=== PATIENT | female | born 1930 | race Caucasian/White ===

== ENCOUNTER 2018-11-27 17:36 | Inpatient (IN) | payer MEDICARE, BC ==
[~2018-11-27] VITALS: Ht 152.4 cm; Wt 65.8 kg
[2018-11-27] MEDS ORDERED: Z GUARD REMEDY PASTE 57 GM TUBE TOP PRN (17:45)
[2018-11-27 17:56] VITALS: BP 145/45
[2018-11-27] MEDS ORDERED: ZOLP5TAB8 PO (18:20)
[2018-11-27] MEDS ORDERED: MAG-55 PO (18:20)
[2018-11-27] MEDS ORDERED: ACET-2154 PO (18:20)
[2018-11-27] MEDS ORDERED: LEVO100T10 PO (18:20)
[2018-11-27] MEDS ORDERED: HYDR-3326 PO (18:20)
[2018-11-27] MEDS ORDERED: AMLO10TA7 PO (18:20)
[2018-11-27] MEDS ORDERED: LISI-603 PO (18:20)
[2018-11-27] MEDS ORDERED: MAGN400O6 PO (18:20)
[2018-11-27] MEDS ORDERED: MULTI INGREDIENT TP (18:20)
[2018-11-27] MEDS ORDERED: ONDA4TAB10 PO (18:20)
--- NOTE | 2018-11-27 19:09 | NUR ---
Admitted a 88 years old female patient at [address] [facility]. BIB 2 EMT via [facility]. Pt. is under the care of Dr. Hidalgo and Julius Mcgill DNP who came with the following dx: TIA, HLD, hypothyroidism, Colon CA, HTN, and GERD. Patient has allergies to Sulfa. Patient is full code. Patient is A/Ox4 verbally responsive and able to make her needs known. No SOB or acute distress, on 2LPM via [place] and tolerating well. Denies pain during assessment. All pt. needs attended and met promptly. Lungs sounds clear to auscultation. Initial skin assessment completed, noted with bilateral heel redness and shell posterior thigh skin redness. MRSA swab completed per unit protocol. Pt. on a Cardiac diet. Dr. Hidalgo made aware of pt. admission. Notified Magdaleno Mcgill DNP of admission and requested med recon. Kept pt. clean and dry. Safety measures in place. Call light and all frequently used items within pt. reach. Emphasize use of call light system, pt. verbalized clear understanding. Will endorse to oncoming shift accordingly.
[2018-11-27 19:48] VITALS: BP 156/57
[2018-11-27] MEDS ORDERED: ZOLPIDEM 5 MG TABLET PO SCH (20:00)
[2018-11-27] MEDS ORDERED: MAGNESIUM HYDROXIDE 30 ML LIQUID UDC PO SCH (20:00)
--- NOTE | 2018-11-27 21:25 | NUR ---
received patient in bed watching TV upon rounds. aaox4 no acute distress noted. VSS. Seen by Dr Mcgill. needs attended. denies any pain nor any discomfort. On O2 @ 2L via nasal cannula, pulse ox 96%. Kept comfortable. Incontinent of bowel and bladder. No BM noted. Kept clean and dry. Will monitor patient.
[2018-11-28 05:49] VITALS: BP 150/55
[2018-11-28] MEDS ORDERED: ZOLPIDEM 5 MG TABLET PO PRN (07:05)
[2018-11-28] MEDS ORDERED: MAGNESIUM HYDROXIDE 30 ML LIQUID UDC PO PRN (07:06)
[2018-11-28] MEDS ORDERED: LEVOTHYROXINE SODIUM 100 MCG TABLET PO SCH ×2 (07:30)
[2018-11-28] MEDS: AMLODIPINE 10 MG TABLET PO SCH (08:38)
[2018-11-28] MEDS: METFORMIN HCL 500 MG TABLET PO SCH ×2 (08:38→17:15)
[2018-11-28] MEDS: LEVOTHYROXINE SODIUM 100 MCG TABLET PO SCH (08:39)
[2018-11-28] MEDS: LISINOPRIL 20 MG TABLET PO SCH (08:40)
--- NOTE | 2018-11-28 08:41 | NUR ---
Patient assisted with sitting up in bed for breakfast, took all AM medications, no complaints of pain at this time, no signs of distress noted, call light in reach, bed locked and in lowest positioned, all needs met
[2018-11-28 09:00] VITALS: BP 169/49
[2018-11-28 20:08] VITALS: BP 133/36
--- NOTE | 2018-11-28 22:24 | NUR ---
Received pt in bed, AAO x 4 watching television, resting comfortably. No acute distress noted. Verbally responsive and able to make needs known. Denies pain or discomfort at this time. All safety measures and fall precautions maintained. Call light and all frequently used items within reach. Will continue to monitor.
[2018-11-29 05:55] LABS: BASOPHILS # (AUTO) 0.2 K/uL (0.0-8.0); BASOPHILS % (AUTO) 0.7 % (0.0-2.0); EOSINOPHILS # (AUTO) 0.7 K/uL (0.0-0.7); EOSINOPHILS % (AUTO) 2.2 % (0.0-7.0); HEMATOCRIT 34.5 % (31.2-41.9); LYMPHOCYTES # (AUTO) 25.5 K/uL (20.0-40.0); LYMPHOCYTES % (AUTO) 76.7 % (20.5-51.5); MEAN CORPUSCULAR HEMOGLOBIN 26.5 uug (24.7-32.8); MEAN CORPUSCULAR HGB CONC 32 g/dL (32.3-35.6); MEAN CORPUSCULAR VOLUME 83.4 fL (75.5-95.3); MONOCYTES # (AUTO) 1.5 K/uL (2.0-10.0); MONOCYTES % (AUTO) 4.6 % (0.0-11.0); NEUTROPHILS # (AUTO) 5.2 K/uL (1.8-8.9); NEUTROPHILS % (AUTO) 15.8 % (38.5-71.5); PLATELET COUNT (AUTO) 194 K/uL (179-408); RED BLOOD CELL COUNT(AUTO) 4.14 MIL/uL (3.63-4.92)
[2018-11-29 06:01] VITALS: BP 144/42
[2018-11-29] MEDS: LEVOTHYROXINE SODIUM 100 MCG TABLET PO SCH (06:03)
[2018-11-29 06:22] LABS: ALANINE AMINOTRANSFERASE 8 U/L (14-59); ALKALINE PHOSPHATASE 64 U/L (50-136); ASPARTATE AMINOTRANSFERASE 10 U/L (15-37); BILIRUBIN,TOTAL 0.2 mg/dL (0.2-1.0); CARBON DIOXIDE 24 mmol/L (21-32); CHLORIDE 107 mmol/L (98-107); CHOLESTEROL 208 mg/dL (<200); CREATININE 0.9 mg/dL (0.6-1.3); GLUCOSE 107 mg/dL (74-106); HDL CHOLESTEROL 36 mg/dL (40-60); MAGNESIUM 1.9 mg/dL (1.8-2.4); PHOSPHOROUS 3.8 mg/dL (2.5-4.9); TOTAL PROTEIN, SERUM 5.6 g/dL (6.4-8.2); TRIGLYCERIDES 178 MG/DL (30-150); UREA NITROGEN, BLOOD 15 mg/dL (7-18)
[2018-11-29 06:47] LABS: WHITE BLOOD COUNT (AUTO) 33.3 K/uL (3.8-11.8)
--- NOTE | 2018-11-29 06:50 | NUR ---
Lab reported critical WBC value of 33.3. Pt afebrile throughout shift, no acute distress noted. Currently resting in bed comfortably. Will endorse accordingly to AM shift. Safety maintained. Call light within reach.
[2018-11-29 07:09] LABS: THYROID STIMULATING HORMONE 12.886 mIU/mL (0.358-3.740)
[2018-11-29 07:26] LABS: EOSINOPHILS % (MANUAL) 3 % (0-8); LYMPHOCYTES % (MANUAL) 71 % (20-40); MONOCYTES % (MANUAL) 3 % (2-10); NEUTROPHILS % (MANUAL) 19 % (42-75)
[2018-11-29] MEDS: METFORMIN HCL 500 MG TABLET PO SCH ×2 (08:46→17:03)
[2018-11-29] MEDS: LISINOPRIL 20 MG TABLET PO SCH (08:47)
[2018-11-29] MEDS: AMLODIPINE 10 MG TABLET PO SCH (08:47)
[2018-11-29 09:10] VITALS: BP 140/56
--- NOTE | 2018-11-29 09:19 | NUR ---
Received pt. in bed in no distress. A/OX4 verbally responsive and able to make her needs known. No new skin condition. All needs attended and met promptly. All due medications given as ordered and tolerated well. No s/sx of hypo/hyperglycemia. Safety measures in place. Call light and all frequently used items within pt. reach. Will continue to monitor accordingly.
--- NOTE | 2018-11-29 12:40 | NUR ---
Dr. Rafael kitchen and nahed pt. made aware of AM labs results with new order for ASA and Atorvastatin. aware of elevated WBC. Pt. made aware of new order.
[2018-11-29 16:02] VITALS: BP 146/42
--- NOTE | 2018-11-29 18:04 | NUR ---
End of shift note: No significant change during this shift. All needs attended and met promptly. Safety measures in placed. Bed in low position, brake on, side rails up x2 as an enabler. Call light and all frequently used items within pt. reach. Will endorse to next shift accordingly.
[2018-11-29 20:23] VITALS: BP 149/54
[2018-11-29] MEDS: ATORVASTATIN 40 MG TABLET PO SCH (20:51)
--- NOTE | 2018-11-29 23:45 | NUR ---
aaox4 on continous O2 @ 1L via nasal cannula, pulse ox 95%. VSS needs attended. incontinent of bowel and bladder. kept clean and dry. No acute distress noted. will monitor patient. No BM noted. fall precautions maintained. Siderails up for safety.
[2018-11-30 06:01] VITALS: BP 142/49
[2018-11-30] MEDS: LEVOTHYROXINE SODIUM 100 MCG TABLET PO SCH (06:34)
--- NOTE | 2018-11-30 07:05 | NUR ---
End of shift note: Quiet night. no acute distress noted. needs attended. VSS. Incontinent of urine x2. Kept clean and dry. No BM this shift. Will monitor.
[2018-11-30 07:19] LABS: HEMOGLOBIN 11.3 g/dL (10.9-14.3); MEAN CORPUSCULAR HEMOGLOBIN 26.8 uug (24.7-32.8); RED BLOOD CELL COUNT(AUTO) 4.21 MIL/uL (3.63-4.92)
[2018-11-30 07:22] LABS: BASOPHILS # (AUTO) 0.3 K/uL (0.0-8.0); BASOPHILS % (AUTO) 0.8 % (0.0-2.0); EOSINOPHILS # (AUTO) 0.5 K/uL (0.0-0.7); EOSINOPHILS % (AUTO) 1.6 % (0.0-7.0); LYMPHOCYTES # (AUTO) 24.2 K/uL (20.0-40.0); LYMPHOCYTES % (AUTO) 77.4 % (20.5-51.5); MEAN CORPUSCULAR HGB CONC 32 g/dL (32.3-35.6); MEAN CORPUSCULAR VOLUME 83.2 fL (75.5-95.3); MONOCYTES # (AUTO) 1.4 K/uL (2.0-10.0); MONOCYTES % (AUTO) 4.6 % (0.0-11.0); NEUTROPHILS # (AUTO) 4.9 K/uL (1.8-8.9); NEUTROPHILS % (AUTO) 15.6 % (38.5-71.5); PLATELET COUNT (AUTO) 199 K/uL (179-408)
[2018-11-30 07:28] LABS: CARBON DIOXIDE 26 mmol/L (21-32); CHLORIDE 107 mmol/L (98-107); CREATININE 0.9 mg/dL (0.6-1.3); GLUCOSE 107 mg/dL (74-106); MAGNESIUM 1.9 mg/dL (1.8-2.4); PHOSPHOROUS 3.5 mg/dL (2.5-4.9); POTASSIUM 4.3 mmol/L (3.5-5.1); UREA NITROGEN, BLOOD 16 mg/dL (7-18)
[2018-11-30 07:31] LABS: WHITE BLOOD COUNT (AUTO) 31.3 K/uL (3.8-11.8)
[2018-11-30 08:10] VITALS: BP 147/42
[2018-11-30] MEDS: METFORMIN HCL 500 MG TABLET PO SCH ×2 (08:42→17:05)
[2018-11-30] MEDS: ASPIRIN EC 81 MG TABLET.DR PO SCH (08:42)
[2018-11-30] MEDS: AMLODIPINE 10 MG TABLET PO SCH (08:42)
[2018-11-30] MEDS: LISINOPRIL 20 MG TABLET PO SCH (08:42)
[2018-11-30 09:39] LABS: EOSINOPHILS % (MANUAL) 2 % (0-8); LYMPHOCYTES % (MANUAL) 65 % (20-40); MONOCYTES % (MANUAL) 3 % (2-10); NEUTROPHILS % (MANUAL) 11 % (42-75)
--- NOTE | 2018-11-30 09:56 | NUR ---
Received pt. in bed in no distress. A/Ox4 verbally responsive and able to make her needs known. No new skin condition. All needs attended and met promptly. All due medications given as ordered and tolerated well. Dr. Hall on-site, made aware of [facility] WBC 33.3 result, no new order at this time. Safety measures in place. Call light and all frequently used items within pt. reach. Will continue to monitor accordingly.
--- NOTE | 2018-11-30 15:00 | NUR ---
Pt. transitioned to RA, tolerating well with SpO2 of 92-96%
[2018-11-30 16:00] VITALS: BP 140/34
--- NOTE | 2018-11-30 18:18 | NUR ---
End of shift note: All needs attended and met promptly. Safety measures in placed. Bed in low position, brake on, side rails up x2 as an enabler. Call light and all frequently used items within pt. reach. Will endorse to next shift accordingly.
[2018-11-30 19:37] VITALS: BP_SYST 153; BP_SYST 165; BP_DIAS 36; BP_DIAS 54
[2018-11-30 19:45] VITALS: BP 153/36
--- NOTE | 2018-11-30 19:50 | NUR ---
Patient received sitting in wheelchair, AAO x3. Able to make needs known. No acute distress or SOB noted. On room air. No Complain of pain at this time. Physical assessment done. Safety measures observed. Fall precaution maintained. Bed in low position, side rails up x2 for safety, brake and alarm on. call light and personal belongings within reach. Continue to monitor.
[2018-11-30] MEDS: ATORVASTATIN 40 MG TABLET PO SCH (20:09)
[2018-12-01 05:53] VITALS: BP 150/53
[2018-12-01] MEDS ORDERED: LEVOTHYROXINE SODIUM 100 MCG TABLET PO SCH (07:00)
[2018-12-01] MEDS: LEVOTHYROXINE SODIUM 125 MCG TABLET PO SCH (07:14)
[2018-12-01 07:30] VITALS: BP 139/84
[2018-12-01] MEDS: ASPIRIN EC 81 MG TABLET.DR PO SCH (08:31)
[2018-12-01] MEDS: METFORMIN HCL 500 MG TABLET PO SCH ×2 (08:31→17:29)
[2018-12-01] MEDS: AMLODIPINE 10 MG TABLET PO SCH (08:36)
[2018-12-01] MEDS: LISINOPRIL 20 MG TABLET PO SCH (08:37)
--- NOTE | 2018-12-01 08:40 | NUR ---
Patient awake, alert, able to make needs known, on room air, not in any form of distress. She denies any pain or discomfort at this time. Due medications administered and patient tolerated well. Assisted with her needs. Call light and frequently used items placed within reach.
--- NOTE | 2018-12-01 11:00 | NUR ---
Patient seen by Dr. Hall, update given to MD including current WBC and trend of BP as endorsed by night nurse. Per MD its OK, no new order at this time and continue to monitor.
[2018-12-01 16:30] VITALS: BP 122/59
[2018-12-01 20:08] VITALS: BP 180/40
[2018-12-01] MEDS: ATORVASTATIN 40 MG TABLET PO SCH (20:42)
[2018-12-01] MEDS: hydrALAZINE HCL 10 MG TABLET PO PRN (20:43)
--- NOTE | 2018-12-02 00:56 | NUR ---
received in bed resting. aaox4 no acute distress noted. needs attended. BP 180/40 via right arm, 148/38 left arm. patient asymptomatic. Dr. Hall aware. Hydralazine 25 mg po given for BP. Will monitor patient's BP. Attended to needs. Will monitor BP again,Incontinent of bowel and bladder. Kept clean and dry. No acute distress.
[2018-12-02 05:11] VITALS: BP 162/46
[2018-12-02] MEDS: LEVOTHYROXINE SODIUM 125 MCG TABLET PO SCH (06:06)
[2018-12-02] MEDS: ASPIRIN EC 81 MG TABLET.DR PO SCH (08:34)
[2018-12-02] MEDS: METFORMIN HCL 500 MG TABLET PO SCH ×2 (08:34→17:00)
[2018-12-02] MEDS: LISINOPRIL 20 MG TABLET PO SCH (08:41)
[2018-12-02] MEDS: AMLODIPINE 10 MG TABLET PO SCH (08:42)
[2018-12-02] MEDS ORDERED: IOHEXOL 300MG/ML 100 ML INFUS..BTL ONE (08:52)
[2018-12-02] MEDS ORDERED: SWABABLE VALVE TRANSFER SET EA MC ONE (08:52)
[2018-12-02] MEDS ORDERED: IV NORMAL SALINE 250 ML IV ONE (08:52)
--- NOTE | 2018-12-02 09:08 | NUR ---
INTERDISCIPLINARY TEAM CONFERENCE
[2018-12-02 09:39] VITALS: BP 156/36
--- NOTE | 2018-12-02 09:56 | NUR ---
INDIVIDUALIZE PLAN OF CARE
--- NOTE | 2018-12-02 11:45 | NUR ---
Pt refused US carotid, uppper extremity, echo and ct
--- NOTE | 2018-12-02 15:57 | NUR ---
Patient refuse CT chest with contrast EKG and doppler test. MD Peterson and MD Hall aware. WBC 31.3 relayed to MD hall. not in distress. no complaint of pain/discomfort. will continue monitor
[2018-12-02 17:03] VITALS: BP 155/40
--- NOTE | 2018-12-02 19:30 | NUR ---
Patient alert and oriented 4. Received in bed watching TV. No C/O pain, SOB, or distress at this time. Left AC 22G intact and patent. Call light and frequently used items within reach. Side rails up bilaterally for safety. Will continue to monitor.
[2018-12-02 19:52] VITALS: BP 157/38
[2018-12-02] MEDS: ATORVASTATIN 40 MG TABLET PO SCH (21:04)
[2018-12-03 05:06] VITALS: BP 166/50
[2018-12-03] MEDS: LEVOTHYROXINE SODIUM 125 MCG TABLET PO SCH (06:15)
[2018-12-03] MEDS: hydrALAZINE HCL 10 MG TABLET PO PRN (06:15)
[2018-12-03 06:20] LABS: BASOPHILS # (AUTO) 0.1 K/uL (0.0-8.0); BASOPHILS % (AUTO) 0.2 % (0.0-2.0); EOSINOPHILS # (AUTO) 0.6 K/uL (0.0-0.7); EOSINOPHILS % (AUTO) 1.9 % (0.0-7.0); HEMATOCRIT 35.8 % (31.2-41.9); HEMOGLOBIN 11.4 g/dL (10.9-14.3); LYMPHOCYTES # (AUTO) 24.9 K/uL (20.0-40.0); LYMPHOCYTES % (AUTO) 76.7 % (20.5-51.5); MEAN CORPUSCULAR HEMOGLOBIN 26.4 uug (24.7-32.8); MEAN CORPUSCULAR HGB CONC 32 g/dL (32.3-35.6); MEAN CORPUSCULAR VOLUME 83.2 fL (75.5-95.3); MONOCYTES # (AUTO) 1.2 K/uL (2.0-10.0); MONOCYTES % (AUTO) 3.6 % (0.0-11.0); NEUTROPHILS # (AUTO) 5.7 K/uL (1.8-8.9); NEUTROPHILS % (AUTO) 17.6 % (38.5-71.5); PLATELET COUNT (AUTO) 200 K/uL (179-408)
--- NOTE | 2018-12-03 06:29 | NUR ---
Morning BP noted to 166/50. Apresoline given. Will continue to monitor.
[2018-12-03 06:31] LABS: WHITE BLOOD COUNT (AUTO) 32.5 K/uL (3.8-11.8)
[2018-12-03 06:36] LABS: CARBON DIOXIDE 24 mmol/L (21-32); CHLORIDE 105 mmol/L (98-107); GLUCOSE 99 mg/dL (74-106); MAGNESIUM 1.9 mg/dL (1.8-2.4); PHOSPHOROUS 4.1 mg/dL (2.5-4.9); POTASSIUM 4.2 mmol/L (3.5-5.1); UREA NITROGEN, BLOOD 21 mg/dL (7-18)
[2018-12-03 07:02] LABS: EOSINOPHILS % (MANUAL) 3 % (0-8); LYMPHOCYTES % (MANUAL) 47 % (20-40); METAMYELOCYTES % 1 % (0-1); MONOCYTES % (MANUAL) 1 % (2-10); MYELOCYTES % 1 % (0-0); NEUTROPHILS % (MANUAL) 15 % (42-75)
[2018-12-03 08:00] VITALS: BP 127/49
[2018-12-03] MEDS: METFORMIN HCL 500 MG TABLET PO SCH ×2 (08:48→17:03)
[2018-12-03] MEDS: ASPIRIN EC 81 MG TABLET.DR PO SCH (08:48)
[2018-12-03] MEDS: AMLODIPINE 10 MG TABLET PO SCH (08:48)
[2018-12-03] MEDS: LISINOPRIL 20 MG TABLET PO SCH ×2 (08:50→20:06)
[2018-12-03 16:09] VITALS: BP_SYST 113; BP_SYST 138; BP_DIAS 34; BP_DIAS 65
--- NOTE | 2018-12-03 18:09 | NUR ---
Received patient awake in bed in stable condition. no complaint of pain/discomfort. WBC 32.5 relayed to MD Hall. Patient still refuse all test requested by . not in distress. Continue therapy for ambulation, ADL and unsteady gait. will continue monitor
--- NOTE | 2018-12-03 19:34 | NUR ---
Received in bed watching TV. Patient alert and oriented x 4. No C/O pain, SOB, or distress at this time. Left AC 22G intact and patent. Call light and frequently used items within reach. Side rails up bilaterally for safety. Will continue to monitor.
[2018-12-03] MEDS: ATORVASTATIN 40 MG TABLET PO SCH (20:06)
[2018-12-03] MEDS: MAGNESIUM HYDROXIDE 30 ML LIQUID UDC PO PRN (20:06)
[2018-12-03 20:39] VITALS: BP 125/42
[2018-12-04] MEDS: LEVOTHYROXINE SODIUM 125 MCG TABLET PO SCH (06:09)
[2018-12-04 06:23] VITALS: BP 126/49
[2018-12-04 07:25] VITALS: BP 139/48
[2018-12-04] MEDS: LISINOPRIL 20 MG TABLET PO SCH ×2 (08:29→20:13)
[2018-12-04] MEDS: AMLODIPINE 10 MG TABLET PO SCH (08:29)
[2018-12-04] MEDS: ASPIRIN EC 81 MG TABLET.DR PO SCH (08:29)
[2018-12-04] MEDS: METFORMIN HCL 500 MG TABLET PO SCH ×2 (08:29→17:42)
--- NOTE | 2018-12-04 14:25 | NUR ---
Pt received this morning in bed. Pt assessed, AOx4, denies pain, no acute distress or SOB at this time. VSS on RA. 22G left AC IV intact and patent. Pt compliant with routine medications and cooperative with therapies as offered. Bed in locked and lowest position, with side rails up x2. Personal belongings and call light placed within reach. All safety and comfort measures implemented. Will continue to monitor.
[2018-12-04 15:20] VITALS: BP 160/48
[2018-12-04 17:22] VITALS: BP 146/41
[2018-12-04 19:41] VITALS: BP 123/32
--- NOTE | 2018-12-04 19:42 | NUR ---
Patient alert and oriented x 4. Patient in bed watching TV. No C/O pain, SOB, or distress at this time. Left AC 22G intact and patent. Call light and frequently used items within reach. Side rails up bilaterally for safety. Will continue to monitor.
[2018-12-04] MEDS: ATORVASTATIN 40 MG TABLET PO SCH (20:12)
[2018-12-05 04:43] VITALS: BP 136/49
[2018-12-05] MEDS: LEVOTHYROXINE SODIUM 125 MCG TABLET PO SCH (06:16)
[2018-12-05 08:45] VITALS: BP 151/51
--- NOTE | 2018-12-05 08:50 | NUR ---
Received patient, awake, alert x4, resting in bed. No new weakness noted. Denies pain, not in any form of distress. Assisted to chair for breakfast. Morning care done.
[2018-12-05] MEDS: LISINOPRIL 20 MG TABLET PO SCH ×2 (08:58→20:26)
[2018-12-05] MEDS: ASPIRIN EC 81 MG TABLET.DR PO SCH (08:58)
[2018-12-05] MEDS: AMLODIPINE 10 MG TABLET PO SCH (08:58)
[2018-12-05] MEDS: METFORMIN HCL 500 MG TABLET PO SCH ×2 (08:58→17:23)
--- NOTE | 2018-12-05 11:00 | NUR ---
Up with physical therapy, tolerating well. Denies any pain. Able to ambulate with front wheel walker walker with minimal assist.
[2018-12-05 16:00] VITALS: BP 123/37
[2018-12-05 19:50] VITALS: BP 115/34
[2018-12-05] MEDS: ATORVASTATIN 40 MG TABLET PO SCH (20:25)
[2018-12-06 05:07] VITALS: BP 133/52
--- NOTE | 2018-12-06 06:15 | NUR ---
slept well most of the shift. no acute distress noted. needs attended. voiding freely. denies any pain nor any discomfort. fall precautions maintained.
[2018-12-06] MEDS: LEVOTHYROXINE SODIUM 125 MCG TABLET PO SCH (06:33)
[2018-12-06 08:37] VITALS: BP_SYST 102; BP_SYST 146; BP_DIAS 36; BP_DIAS 43
[2018-12-06] MEDS: AMLODIPINE 10 MG TABLET PO SCH ×2 (08:38→08:45)
[2018-12-06] MEDS: ASPIRIN EC 81 MG TABLET.DR PO SCH (08:39)
[2018-12-06] MEDS: LISINOPRIL 20 MG TABLET PO SCH ×3 (08:39→21:23)
[2018-12-06] MEDS: METFORMIN HCL 500 MG TABLET PO SCH ×2 (08:39→17:07)
--- NOTE | 2018-12-06 11:27 | NUR ---
Received patient awake in bed in stable condition. Continue following by aircraft shipping checker and continue refusing all the procedures. Requested to remove IV site of left AC. MD aware. IV site discontinue. not in distress. no complaint of pain/discomfort. will continue monitor
[2018-12-06 16:38] VITALS: BP 109/40
[2018-12-06 18:09] VITALS: BP 136/36
--- NOTE | 2018-12-06 19:00 | NUR ---
Awake, watching TV on initial rounds. Denies any pain/discomforts at this time. Safety measure and fall precaution maintained. Continue care as planned
[2018-12-06 20:49] VITALS: BP 158/46
[2018-12-06] MEDS: ATORVASTATIN 40 MG TABLET PO SCH (21:23)
[2018-12-07 04:25] VITALS: BP 150/41
[2018-12-07] MEDS: LEVOTHYROXINE SODIUM 125 MCG TABLET PO SCH (06:15)
--- NOTE | 2018-12-07 06:52 | NUR ---
Skin check done with RN Lora Kaufman. Blanchable redness noted to right heel, no open area. Skin appears intact, kept clean and dry. Will endorse to incoming nurse for continuity of care.
[2018-12-07] MEDS: METFORMIN HCL 500 MG TABLET PO SCH ×2 (08:37→17:06)
[2018-12-07] MEDS: AMLODIPINE 10 MG TABLET PO SCH (08:37)
[2018-12-07] MEDS: ASPIRIN EC 81 MG TABLET.DR PO SCH (08:37)
[2018-12-07] MEDS: LISINOPRIL 20 MG TABLET PO SCH ×2 (08:38→20:20)
--- NOTE | 2018-12-07 09:00 | NUR ---
Received pt. in bed in no distress. A/OX4 verbally responsive and able to make her needs known. No new skin condition. All needs attended and met promptly. All due medications given as ordered and tolerated well. Safety measures in place. Call light and all frequently used items within pt. reach. Will continue to monitor accordingly.
[2018-12-07 09:30] VITALS: BP 129/46
[2018-12-07 16:19] VITALS: BP 118/55
[2018-12-07] MEDS: MAGNESIUM HYDROXIDE 30 ML LIQUID UDC PO PRN (18:20)
--- NOTE | 2018-12-07 19:54 | NUR ---
Patient alert and oriented x 4. Patient in bed watching TV. No C/O pain, SOB, or distress at this time. Call light and frequently used items within reach. Side rails up bilaterally for safety. Will continue to monitor.
[2018-12-07] MEDS: ATORVASTATIN 40 MG TABLET PO SCH (20:20)
[2018-12-07 20:51] VITALS: BP 139/31
[2018-12-08 04:55] VITALS: BP 149/44
[2018-12-08] MEDS: LEVOTHYROXINE SODIUM 125 MCG TABLET PO SCH (06:04)
[2018-12-08 07:30] VITALS: BP 144/42
[2018-12-08] MEDS: METFORMIN HCL 500 MG TABLET PO SCH ×2 (08:41→18:04)
[2018-12-08] MEDS: ASPIRIN EC 81 MG TABLET.DR PO SCH (08:41)
[2018-12-08] MEDS: LISINOPRIL 20 MG TABLET PO SCH ×2 (08:41→21:48)
[2018-12-08] MEDS: AMLODIPINE 10 MG TABLET PO SCH (08:41)
[2018-12-08 16:35] VITALS: BP 135/38
[2018-12-08] MEDS: MAGNESIUM HYDROXIDE 30 ML LIQUID UDC PO PRN (17:21)
[2018-12-08 20:21] VITALS: BP 127/46
[2018-12-08] MEDS: ATORVASTATIN 40 MG TABLET PO SCH (21:47)
[2018-12-09] MEDS: LEVOTHYROXINE SODIUM 125 MCG TABLET PO SCH (06:06)
[2018-12-09 06:12] VITALS: BP 147/45
[2018-12-09] MEDS: METFORMIN HCL 500 MG TABLET PO SCH ×2 (08:36→17:04)
[2018-12-09] MEDS: ASPIRIN EC 81 MG TABLET.DR PO SCH (08:36)
[2018-12-09] MEDS: LISINOPRIL 20 MG TABLET PO SCH ×2 (08:36→20:30)
[2018-12-09] MEDS: AMLODIPINE 10 MG TABLET PO SCH (08:36)
[2018-12-09 09:03] VITALS: BP 134/45
--- NOTE | 2018-12-09 11:26 | NUR ---
Patient continue participates in therapy activity. tolerated well. not in distress. Continue pain management PRN. no complaint of pain/discomfort. will continue monitor
--- NOTE | 2018-12-09 13:14 | NUR ---
INTERDISCIPLINARY TEAM CONFERENCE
[2018-12-09 16:44] VITALS: BP 138/55
--- NOTE | 2018-12-09 19:46 | NUR ---
received in bed watching TV upon initial rounds. aaox4 no acute distress noted. VSS needs attended. kept comfortable. will monitor patient. Incontinent of urine x2. Kept clean and dry. denies any pain nor any discomfort. fall precautions maintained. siderails up for safety.
[2018-12-09 19:52] VITALS: BP 136/46
[2018-12-09] MEDS: ATORVASTATIN 40 MG TABLET PO SCH (20:29)
--- NOTE | 2018-12-09 23:00 | NUR ---
Received report from outgoing nurse STEPHEN Reza
[2018-12-10 05:39] VITALS: BP 160/42
[2018-12-10] MEDS: hydrALAZINE HCL 10 MG TABLET PO PRN (05:52)
[2018-12-10] MEDS: LEVOTHYROXINE SODIUM 125 MCG TABLET PO SCH (05:52)
--- NOTE | 2018-12-10 06:47 | NUR ---
Shift End Report: Slept good. No complaint presented the whole night. All needs attended and met. BP this AM 160/42/ Apresoline po given as ordered and needed. Will monitor. No significant event reported. Continue current rehab plan of care.
[2018-12-10 08:00] VITALS: BP 142/39
--- NOTE | 2018-12-10 08:30 | NUR ---
Received patient, awake, alert x 3-4. No new weakness notes. Not in any form of distress, no dizziness, headache SOB or chest pains noted. Morning care done. For possible discharge today.
[2018-12-10] MEDS: ASPIRIN EC 81 MG TABLET.DR PO SCH (08:59)
[2018-12-10] MEDS: METFORMIN HCL 500 MG TABLET PO SCH (08:59)
[2018-12-10] MEDS: LISINOPRIL 20 MG TABLET PO SCH (08:59)
--- NOTE | 2018-12-10 12:58 | NUR ---
Discharge order obtained from Dr. Hidalgo
[2018-12-10] MEDS: AMLODIPINE 10 MG TABLET PO SCH (15:29)
--- NOTE | 2018-12-10 16:30 | NUR ---
Discharge packet and instructions given to patient and nephew. Instructed to take blood pressure prior to taking blood pressure medications. Instructed to take medications as prescribed and to ambulate with assistive device. Discussed importance of follow-up with PCP. Routine discharge care done. No pain noted, no new weakness with baseline LOC. Patient stable with no distress. Discharge to home accompanied by alannah Hartman via private transport.
[2018-12-10 16:49] VITALS: BP 141/44
== END 2018-12-10 16:30 | disposition home health service (06) | DRG 57 ==
PROVIDERS: ADMIT Physical Medicine & Rehabilitation Pain Medicine; ATTEND Physical Medicine & Rehabilitation Pain Medicine
DX: I69.898 Other sequelae of other cerebrovascular disease (principal); E03.9 Hypothyroidism, unspecified; E11.9 Type 2 diabetes mellitus without complications; E78.5 Hyperlipidemia, unspecified; I67.2 Cerebral atherosclerosis; I70.0 Atherosclerosis of aorta; I10 Essential (primary) hypertension; K21.9 Gastro-esophageal reflux disease without esophagitis; Z85.038 Personal history of other malignant neoplasm of large intestine; Z85.6 Personal history of leukemia; I70.8 Atherosclerosis of other arteries; R53.81 Other malaise; Z88.2 Allergy status to sulfonamides; R79.89 Other specified abnormal findings of blood chemistry; Z53.29 Procedure and treatment not carried out because of patient's decision for other reasons
CPT/HCPCS: 36415; 83735; 84100; 84443; 84481; 85025; 92507; 92523; 97110; 97112; 97116; 97165; 97530; 97535; A4663; J7050; Q9967

== ENCOUNTER 2018-12-14 11:07 | Emergency (ER) | payer MEDICARE, BC ==
[~2018-12-14] VITALS: Ht 154.9 cm; Wt 64.0 kg
[~2018-12-14 11:07] MED LIST: ACET-2154 PO; AMLO10TA7 PO; HYDR-3326 PO; LEVO100T10 PO; LISI-603 PO; MAG-55 PO; MAGN400O6 PO; MULTI INGREDIENT TP; ONDA4TAB10 PO; ZOLP5TAB8 PO
--- NOTE | 2018-12-14 11:07 | NUR ---
1st contact with patient- Patient is oriented to name, place & time but forgetful about her medical history. Patient's respiration is easy, skin warm & dry. Patient was brought in by her private caregiver & niece.
--- NOTE | 2018-12-14 11:09 | NUR ---
Patient is Aox2-3, refusing any IV line insertion or blood draw or tests, MD notified. Patient's POA (patient's niece) & private caregiver are at bedside. Patient's niece & Dr Martell are trying to convince this patient re: tests (blood, urine, EKG). Patient shouting, "Take me home."
--- NOTE | 2018-12-14 11:10 | NUR ---
Note malena in ED - 12/14/18 at 1126 by CECI 1st contact with patient: Patient is oriented to name, place & time but forgetful regarding her medical history. Patient's respiration is easy. Patient does not want to be in our ER department. Patient was brought in by her private caregiver & niece.
[2018-12-14] MEDS ORDERED: CARV3.122 PO (11:26)
[2018-12-14] MEDS ORDERED: METF-440 PO (11:26)
[2018-12-14] MEDS ORDERED: DONE5TAB7 PO (11:26)
[2018-12-14] MEDS ORDERED: OMEP40CA37 PO (11:26)
--- NOTE | 2018-12-14 11:41 | NUR ---
Patient does not wish to proceed with medical care recommended by Dr. Martell. Patient & niece were given information related to possible complications, up to and including , which could occur as a result of leaving the hospital at this time. Patient & family verbalized understanding of risks involved due to leaving against medical advice. Patient has signed AMA form.
== END 2018-12-14 11:44 | disposition left against medical advice (07) ==
LOC: ER 11:07
DX: R45.6 Violent behavior (principal); E11.9 Type 2 diabetes mellitus without complications; F41.9 Anxiety disorder, unspecified; F03.90 Unspecified dementia, unspecified severity, without behavioral disturbance, psychotic disturbance, mood disturbance, and anxiety; Z88.2 Allergy status to sulfonamides; Z79.899 Other long term (current) drug therapy
CPT/HCPCS: A4663